=== PATIENT | female | born 1945 | race Caucasian/White ===

== ENCOUNTER 2019-03-02 00:09 | Observation (INO) ==
[2019-03-02] MEDS ORDERED: ZOFRAN IV ONE (00:22)
--- NOTE | 2019-03-02 00:26 | PROVIDER DOCUMENTATION ---
This chart was entered by Tracy Handy Scribe, acting as scribe for Fidel Carroll CRNP. HPI-General Adult - General Source: patient - History of Present Illness -Gen Adult Nature of Presenting Problems: 73 y/o female presents to ED with syncope onset just prior to arrival. Pt reports nausea and diarrhea for the past 5 days. Pt states she has diarrhea within 30 minutes of eating or drinking. Pt reports she was exposed to "a stomach bug." Pt is alert and oriented. Location of Pain/Injury: reports: none Pain Radiation: reports: no radiation Quality of Pain: reports: none Severity: reports: mild Onset/Duration: reports: just prior to arrival, 5 days ago Timing: reports: still present Context/Activities at Onset: reports: none Modifying Factors: improves with: nothing Associated Symptoms: reports: diarrhea, nausea, syncope Similar Symptoms Previously?: No Recently seen or treated by another doctor?: No <Fidel Carroll - Last Filed: 03/02/19 01:35> - History of Present Illness -Gen Adult Nature of Presenting Problems: Patient is a 73 year old white female who presents with diarrheal illness and orthostasis after exposure to family member with diarrhea illness who visited [facility]. <Sanchez Jackson - Last Filed: 03/02/19 03:28> - General Chief Complaint: Syncope Stated Complaint: Syncope Time Seen by Provider: 03/02/19 00:16 Allergies/Adverse Reactions: Patient Allergies Allergy/AdvReac Type Severity Reaction Status Date / Time ropinirole [From Requip] Allergy NAUSEA/VOMI Verified 03/02/19 00:16 TING Home Medications: Home Medication List Medication Instructions Recorded Confirmed Last Taken Type Citalopram [Celexa] 40 mg PO HS 04/04/14 04/04/14 04/03/14 22:00 History Cyclobenzaprine [Flexeril] 10 mg PO TID PRN 04/04/14 04/04/14 04/02/14 14:00 History Diphenhydramine HCl [Allergy 25 mg PO PRN PRN 04/04/14 04/04/14 04/03/14 09:00 H istory Relief] Hydrocodone/APAP 10 mg/325 mg 1 each PO Q4H PRN PRN #20 tablet 04/04/14 Unknown Rx [Ponderay-10] Mometasone/Formoterol [Dulera 200 8.8 gm IH BID 04/04/14 04/04/14 04/04/14 09:00 History Mcg/5 Mcg Inhaler] Ondansetron [Zofran] 4 mg PO Q6H PRN PRN #20 tablet 04/04/14 Unknown Rx Promethazine HCl 25 mg PO Q4-6H PRN PRN 04/04/14 04/04/14 04/03/14 19:00 History Review of Systems - Adult - REVIEW OF SYSTEMS - ADULT Constitutional: denies: chills, fever Eyes: reports: no symptoms reported Ears, Nose, Mouth & Throat: reports: no symptoms reported Cardiovascular: denies: chest pain, palpitations Respiratory: denies: cough, shortness of breath Gastrointestinal: reports: diarrhea, nausea. denies: abdominal pain, vomiting Genitourinary: reports: no symptoms reported Musculoskeletal: denies: back pain, joint pain Integumentary: reports: no symptoms reported Neurological: reports: syncope. denies: dizziness/vertigo, seizure Psychiatric: reports: no symptoms reported Endocrine: reports: no symptoms reported Hematologic/Lymphatic: reports: no symptoms reported Allergic/Immunologic: reports: no symptoms reported All Other Systems: Reviewed and Negative <Fidel Carroll - Last Filed: 03/02/19 01:35> Past History - Adult - PAST MEDICAL HISTORY-ADULT Review of Records: reports: Old Records Reviewed, Nursing Assessment Review, Medications Reviewed Major Childhood Illnesses: reports: denies history Cardiovascular: reports: denies history Respiratory: reports: asthma Gastrointestinal: reports: denies history Obstetrical/Gynecological: reports: denies history Genitourinary: reports: denies history Musculoskeletal: reports: fibromyalgia, other (fibromyalgia) Neurological: reports: denies history Psychiatric: reports: anxiety, depression Endocrine/Immune: reports: Diabetes Other Conditions: reports: denies history - PRIOR SURGERIES/PROCEDURES Surgical/Procedure History: reports: cholecystectomy, hysterectomy, orthopedic (extremity) (L shoulder; R knee; R foot), gastric bypass - IMMUNIZATION STATUS Childhood Immunizations: See Nurse Assessment Flu Vaccine: See Nurse Assessment - FAMILY HISTORY Family History: reviewed, not pertinent - SOCIAL HISTORY Smoking: non-smoker Substance Use: none/never Alcohol Use Frequency: never Living Situation: family <Fidel Carroll - Last Filed: 03/02/19 01:35> Physical Exam-General - PHYSICAL EXAM-ADULT Initial Vital Signs Reviewed: Yes - CONSTITUTIONAL General Appearance: appears well, alert, no apparent distress - EYES Eyes: PERRL/EOMI, pink conjunctivae - HEAD, EARS, NOSE, MOUTH & THROAT HENMT: normocephalic/atraumatic, moist mucous membranes, normal ENT inspection - NECK Neck: non-tender, full range of motion - RESPIRATORY Respiratory: chest non-tender, lungs clear, normal breath sounds - CARDIOVASCULAR Cardiovascular: normal peripheral pulses, regular rate, rhythm - GASTROINTESTINAL (ABDOMEN) Abdominal Exam: non tender, soft, abnormal bowel sounds (hypoactive). negative: normal bowel sounds - MUSCULOSKELETAL Back Exam: normal inspection, no CVA tenderness, no vertebral tenderness Extremity: normal range of motion, non-tender - SKIN Integumentary: normal color, warm/dry - NEUROLOGIC Neurologic: grossly normal - PSYCHIATRIC Psych/Mental Status: normal mood/affect, normal thought content, normal thought process, oriented x 3 <Fidel Carroll - Last Filed: 03/02/19 01:35> Progress - PLAN OF CARE/RESULTS Progress/Plan/Lab Results: Vital Signs - 8 hr 03/02/19 00:09 Pulse Rate 90 Respiratory Rate 18 Blood Pressure 107/69 O2 Sat by Pulse Oximetry 94 L Orders Category Date Time Status Cardiac Monitoring DIRECTED Care 03/02/19 01:07 Active Orthostatic Vital Signs NOW Care 03/02/19 00:20 Active Saline Loc NOW Care 03/02/19 00:20 Active CHEST-PORTABLE [RAD] Stat Exams 03/02/19 00:21 Taken CBC WITH ELECTRONIC DIFF [HEME] Stat Lab 03/02/19 00:30 Completed CK PROFILE [SP CHEM] Stat Lab 03/02/19 00:30 Received COMPREHENSIVE METABOLIC PANEL [CHEM] Stat Lab 03/02/19 00:30 Received TROPONIN T Stat Lab 03/02/19 00:[address] W/POSS RFLX CULT [URINALYSIS] Stat Lab 03/02/19 00:21 Uncollected 0.9% Sodium Chloride Inj [Ns] 1,000 ml Med 03/02/19 00:22 Discontinued IV 999 mls/hr Ondansetron [Zofran] Med 03/02/19 00:22 Discontinued 4 mg IV NOW ONE EKG [EKG] Stat Ther 03/02/19 00:20 Ordered Laboratory Tests 03/02/19 00:30 WBC 16.15 H RBC 5.34 Hgb 15.4 Hct 45.7 MCV 85.6 MCH 28.8 MCHC 33.7 RDW Std Deviation 14.9 H Plt Count 473 H MPV 10.7 H Immature Gran % (Auto) 0.4 Neut % (Auto) 87.2 H Lymph % (Auto) 7.4 L Starr % (Auto) 4.8 Eos % (Auto) 0.1 Baso % (Auto) 0.1 Immature Gran # (Auto) 0.07 H Neut # (Auto) 14.08 H Lymph # (Auto) 1.19 L Starr # (Auto) 0.77 H Eos # (Auto) 0.02 Baso # (Auto) 0.02 Result Diagrams: 03/02/19 00:30 - XRAY 1 XRAY Study: Chest Impression: See EMR Report - CHANGE OF SHIFT REPORT (ED Provider) 1 Report Given and Care Transferred to:: Dr. Jackson Time of Transfer: 01:00 Items Pending: Labs, XRAY Results <Fidel Carroll - Last Filed: 03/02/19 01:35> - PLAN OF CARE/RESULTS Progress/Plan/Lab Results: Vital Signs - 8 hr 03/02/19 00:09 Pulse Rate 90 Respiratory Rate 18 Blood Pressure 107/69 O2 Sat by Pulse Oximetry 94 L Laboratory Results - last 24 hr 03/02/19 03/02/19 03/02/19 00:30 00:30 01:56 WBC 16.15 H RBC 5.34 Hgb 15.4 Hct 45.7 MCV 85.6 MCH 28.8 MCHC 33.7 RDW Std Deviation 14.9 H Plt Count 473 H MPV 10.7 H Immature Gran % (Auto) 0.4 Neut % (Auto) 87.2 H Lymph % (Auto) 7.4 L Starr % (Auto) 4.8 Eos % (Auto) 0.1 Baso % (Auto) 0.1 Immature Gran # (Auto) 0.07 H Neut # (Auto) 14.08 H Lymph # (Auto) 1.19 L Starr # (Auto) 0.77 H Eos # (Auto) 0.02 Baso # (Auto) 0.02 Sodium 138 Potassium 4.4 Chloride 100 Carbon Dioxide 21 L Anion Gap 17 BUN 29 H Creatinine 1.9 H Estimated GFR/1.73 m2 26 BUN/Creatinine Ratio 15 Glucose 192 H POC Glucose 177 H Calculated Osmolality 287 Calcium 9.3 Total Bilirubin 0.40 AST 20 ALT 13 Alkaline Phosphatase 150 H Creatine Kinase 97 Total Protein 7.3 Albumin 4.5 Globulin 3.0 Albumin/Globulin Ratio 2.0 Orders Category Date Time Status Cardiac Monitoring DIRECTED Care 03/02/19 01:07 Active Orthostatic Vital Signs NOW Care 03/02/19 00:20 Active Saline Loc NOW Care 03/02/19 00:20 Active CHEST-PORTABLE [RAD] Stat Exams 03/02/19 00:[address] ABD/PELVIS W/ORAL CONT ONLY [CT] Stat Exams 03/02/19 02:49 Ordered C DIFF TOXIN PL Stat Lab 03/02/19 01:40 Uncollected CBC WITH ELECTRONIC DIFF [HEME] Stat Lab 03/02/19 00:30 Completed CK PROFILE [SP CHEM] Stat Lab 03/02/19 00:30 Completed COMPREHENSIVE METABOLIC PANEL [CHEM] Stat Lab 03/02/19 00:30 Completed TROPONIN T Stat Lab 03/02/19 00:[address] W/POSS RFLX CULT [URINALYSIS] Stat Lab 03/02/19 00:21 Uncollected 0.9% Sodium Chloride Inj [Ns] 1,000 ml Med 03/02/19 00:22 Discontinued IV 999 mls/hr Ondansetron [Zofran] Med 03/02/19 00:22 Discontinued 4 mg IV NOW ONE EKG [EKG] Stat Ther 03/02/19 00:20 Ordered Result Diagrams: 03/02/19 00:30 03/02/19 00:30 - CONSULTS/PCP/HOSPITALIST Notification #1 *Consult/PCP/Hospitalist*: DR. Ignacio Time Discussed: 03:25 Reason/Comments: Start IV Levaquin and Flagyl, NS at 125cc/hr Consult Disposition: Admit <Sanchez Jackson - Last Filed: 03/02/19 03:28> Departure <Fidel Carroll - Last Filed: 03/02/19 01:35> - Departure Date of Disposition Decision: 03/02/19 Time of Disposition Decision: 02:53 Certified Medical Emergency: Emergent - Critical Care Note This patient required my direct & personal management of CC.: No <Sanchez Jackson - Last Filed: 03/02/19 03:28> - Departure DIAGNOSIS: Acute kidney injury, Orthostatic hypotension, Diarrheal disease Disposition: ADMITTED INPATIENT 09 Condition: Stable Referrals and Follow-Ups: Puma Shipley MD [Primary Care Provider] - Attestation - Physician/ NITISH Attestation Patient care was provided by Advanced Practice Provider:: Yes Advanced Practice Provider:: Fidel Carroll Advanced Practice Provider documentation review:: The Mid-level provider documentation, treatment plan and medical decision making was reviewed by the physician who agrees with all treatment and medical decision making by the MLP. The physician spent face to face time with patient:: No Advanced Practice Provider documentation review:: Supervising physician onsite and consulted in the evaluation and care of this patient. The physician did not have a face to face encounter with the patient. <Fidel Carroll - Last Filed: 03/02/19 01:35> This chart was documented by the indicated scribe, (Tracy Handy, Kathleen) and accurately reflects the services I performed and decisions made by , Fidel Carroll CRNP, as attested by the provider's signature.
[2019-03-02] MEDS: NS 1,000 ML IV ONE ×2 (01:13→01:14)
[2019-03-02 01:20] LABS: BASO# 0.02 X1000 (0.0-0.2); BASO% 0.1 % (0.0-0.8); EOS# 0.02 X1000 (0.0-0.7); EOS% 0.1 % (0.0-10.0); HEMATOCRIT 45.7 % (37.0-47.0); HEMOGLOBIN 15.4 g/dL (12.0-16.0); IMM GRAN% 0.4 % (0.0-0.5); LYMPH# 1.19 X1000 (1.2-3.4); LYMPH% 7.4 % (20.5-51.1); MCH 28.8 PG (27-31); MCHC 33.7 g/dL (33-37); MCV 85.6 FL (81-99); MONO# 0.77 X1000 (0.11-0.59); MONO% 4.8 % (1.7-9.3); MPV 10.7 FL (7.4-10.4); NEUT# 14.08 X1000 (1.4-6.5); NEUT% 87.2 % (42.2-75.2); PLT 473 X1000 (130-400); RBC 5.34 XMIL (4.2-5.4); RDW 14.9 % (11.5-14.5); WBC 16.15 X1000 (4.8-10.8)
[2019-03-02 01:21] LABS: IMM GRAN# 0.07 X1000 (0.0-0.04)
[2019-03-02 02:21] LABS: ALBUMIN 4.5 g/dL (3.5-5.0); CALCIUM 9.3 mg/dL (8.8-10.2); CREATININE 1.9 mg/dL (0.5-0.9); POTASSIUM 4.4 mmol/L (3.5-5.1); TOTAL BILIRUBIN 0.4 mg/dL (0.20-1.00); TOTAL PROTEIN 7.3 g/dL (6.3-8.3)
[2019-03-02] MEDS ORDERED: ZOFRAN IV PRN (02:54)
[2019-03-02] MEDS ORDERED: NS 1,000 ML IV ONE (02:54)
[2019-03-02] MEDS: FLAGYL 500 MG/NS 500 MG/100 ML IVPB IV SCH ×4 (03:30→20:58)
[2019-03-02] MEDS ORDERED: FLAGYL 500 MG/NS 500 MG/100 ML IVPB ONE (03:37)
[2019-03-02] MEDS ORDERED: LEVAQUIN 750 MG/D5W 750 MG/150 ML IVPB IV ONE (05:10)
--- NOTE | 2019-03-02 05:48 | Diag Imaging Result Doc PS360 ---
EXAM: CHEST-PORTABLE HISTORY: syncope TECHNIQUE: Chest single view COMPARISON: None. FINDINGS: Poor inspiratory effort. The heart is not enlarged. The vessels are not distended. There are no infiltrates. No effusion identified. There may be a hiatal hernia. IMPRESSION: Negative exam. Follow-up PA and lateral recommended. 'V Electronically signed by Tolu Don 03/02/2019 5:45 AM
--- NOTE | 2019-03-02 05:57 | EKG Report ---
Test Performed on : 03/02/2019 05:34:30 AM Test Reason : syncope Blood Pressure : / mmHG Vent. Rate : 079 BPM Atrial Rate : 079 BPM P-R Int : 154 ms QRS Dur : 080 ms QT Int : 390 ms P-R-T Axes : 035 -03 030 degrees QTc Int : 447 ms Normal sinus rhythm. Inferior infarct , age undetermined Abnormal ECG No previous ECGs available Confirmed by Merrill Crews MD ([id number]) on 03/02/2019 9:35:52 PM
[2019-03-02 06:28] LABS: BILIRUBIN URINE 2+ (NEGATIVE); BLOOD URINE TRACE (NEGATIVE); CLARITY VERY CLOUDY (CLEAR); COLOR YELLOW; GLUCOSE URINE NEGATIVE (NEGATIVE); KETONE URINE TRACE mg/dL (NEGATIVE); LEUKOCYTES URINE 2+ (NEGATIVE); NITRITE URINE NEGATIVE (NEGATIVE); PROTEIN URINE 1+(30 mg/dL) mg/dL (NEGATIVE); UROBILINOGEN URINE 1 mg/dL
[2019-03-02 06:29] LABS: URINE BACTERIA 4+ /HFP; URINE CAST NONE SEEN /LPF; URINE CRYSTAL NONE SEEN /HPF; URINE EPITHELIAL CELLS >10 /HPF (<10); URINE RBC <10 /HPF (<10); URINE SOURCE CLEAN CATCH; URINE WBC TNTC /HPF (<10); URINE YEAST NONE SEEN /HPF
[2019-03-02] MEDS ORDERED: MIRAPEX PO PRN (08:09)
--- NOTE | 2019-03-02 08:33 | Diag Imaging Result Doc PS360 ---
EXAM: CT ABD/PELVIS W/ORAL CONT ONLY HISTORY: diarrhea TECHNIQUE: CT abdomen and pelvis without intravenous contrast, but oral contrast was administered. COMPARISON: None. FINDINGS: No focal hepatic abnormality identified on this noncontrasted exam. The gallbladder has been removed. The spleen is not enlarged. There is fatty infiltration of the pancreas. Normal adrenal glands. No renal stones or hydronephrosis. Prominent atherosclerosis. No aortic aneurysm. There is thickening to the wall of the duodenum with adjacent inflammation. No bowel obstruction. There has been a gastric bypass procedure. No abscess. There is a small umbilical hernia. Moderate free fluid is in the pelvis. The uterus has been removed. No pelvic mass. Urinary bladder is moderately distended and is normal. Prominent spinal stenosis in the lower lumbar spine. IMPRESSION: 1.Suspect duodenitis or ulcer disease 2.Cholecystectomy 3.Umbilical hernia 4.Spinal stenosis in the lower lumbar spine 5.Gastric bypass 6.Hysterectomy 7.Free fluid in the pelvis This exam was performed using automated exposure control, adjustment of mA or kV according to patient size, and/or use of iterative reconstruction technique. Electronically signed by Tolu Don 03/02/2019 8:30 AM
[2019-03-02] MEDS: PRILOSEC PO SCH (09:16)
[2019-03-02] MEDS ORDERED: TYLENOL PO PRN (09:45)
[2019-03-02 11:53] LABS: HEMOGLOBIN A1C 5.4 % (4.8-6.0)
--- NOTE | 2019-03-02 12:46 | HISTORY AND PHYSICAL ---
PRIMARY CARE PROVIDER: Dr. Puma Shipley. CHIEF COMPLAINT: Diarrhea and passed out. HISTORY OF PRESENT ILLNESS: Ms. Sammie Hernandez is a 73-year-old female with a medical history of morbid obesity with a history of gastric bypass, arthritis, fibromyalgia, irritable bowel syndrome with diarrhea and diverticulum. She states that over the last 2 to 3 weeks she has had spells of diarrhea but worsened over the last 5 days to the point that any time she would eat or drink 30 minutes later she was having diarrhea. Color consistency is loose and green to cream- colored. Denied any fever with it. She did have abdominal pain that was across the abdomen from left to right. She only had vomiting one time but has essentially avoided food to avoid the nausea that she has been having. She presented here because yesterday she was getting up to go to the bathroom and passed out. She has been having dizzy spells, which sounds as if she is dehydrated, and having some orthostatic hypotension. We will admit her. We will test the stool to make sure there is not bacteria. Apparently, she has been around other family members that had diarrhea who had also been on multiple antibiotics so she is at risk for having C diff. We will rule that out as well. PAST MEDICAL HISTORY: 1. Arthritis. 2. Anxiety and depression. 3. Fibromyalgia. 4. Diabetes. She says it is pre diabetes, but she is hyperglycemic here. 5. Diverticulum. 6. Irritable bowel syndrome with diarrhea. PAST SURGICAL HISTORY: 1. Cholecystectomy. 2. Hysterectomy. 3. Left shoulder surgery. 4. Right knee surgery. 5. Right foot surgery. 6. Right elbow surgery with metal. 7. Gastric bypass. SOCIAL HISTORY: Denies tobacco, alcohol or illicit drug use. She lives at home with her who is currently at the bedside. FAMILY HISTORY: Mother had diabetes and kidney cancer. Father had prostate cancer and diabetes. He also had coronary artery disease with a CABG in his 70s. ALLERGIES: Requip. HOME MEDICATIONS: 1. Mirapex 0.25 mg p.o. at bedtime. 2. Piroxicam 20 mg p.o. nightly. 3. Temazepam 30 mg p.o. nightly. 4. Celexa 40 mg p.o. nightly. REVIEW OF SYSTEMS: Fourteen point review of systems are complete and all are negative except for those mentioned above in HPI. She does have complaints of a headache and neck pain since her fall yesterday. She will get a CT to evaluate that. PHYSICAL EXAMINATION: VITAL SIGNS: Temperature 97.5 degrees, heart rate 76, respiratory rate 16, blood pressure 119/59, O2 saturation 95% on room air. GENERAL: Ms. Sammie Hernandez is a 73-year-old, female. She is in no acute distress. She is able answer questions appropriately. HEENT: Atraumatic, normocephalic. Pupils equal, round, and reactive to light. Extraocular movements intact. Mucous membranes are dry. NECK: Trachea midline. CARDIOVASCULAR: S1, S2. Regular rate and rhythm. No rubs, gallops, or murmurs. No lower extremity edema. +2 dorsalis and radial pulses. Negative JVD or carotid bruits. PULMONARY: Clear to auscultation. Bilateral breath sounds. No accessory muscle use or work of breathing noted. GI: Soft and tender in the left upper quadrant. Nondistended. Hypoactive bowel sounds x4. EXTREMITIES: Moves all extremities equally with full range of motion. NEUROLOGIC: Alert and oriented x3. Follows commands. Sensory is intact. SKIN: Warm, dry, and intact. LABORATORY DATA: White blood cells 16,000, hemoglobin 15, hematocrit 45, and platelet count 473,000. Sodium 138, potassium 4.4, BUN 29, creatinine 1.9, glucose 192, calcium 9.3, bilirubin 0.40, AST 20, ALT 13, CK 97, troponin less than 0.01. Albumin 4.5. Urinalysis cloudy. 1+ protein, 2+ bilirubin, 2+ white blood cells, too numerous to count microscopic white blood cells, and bacteria 4+. IMAGING: Chest x-ray shows hiatal hernia. Otherwise negative. Abdominal and pelvic CT suspect duodenitis or ulcer disease. Cholecystectomy and umbilical hernia, spinal stenosis in the lower lumbar spine, gastric bypass, hysterectomy, and free fluid in the pelvis. EKG normal sinus rhythm, rate 79, and QTc is 447. ASSESSMENT/PLAN: 1. Syncope secondary to dehydration and orthostatic hypotension due to diarrhea. She only had one spell but she has been having several spells of get dizzy while standing in the last several days. We will do orthostatic vital signs to check to make sure she is starting to hydrate enough that she can tolerate getting out of bed. She is receiving IV fluid hydration. 2. Acute kidney injury secondary to dehydration. Again, getting IV fluid hydration. We will recheck her kidney function in the morning. 3. Duodenitis. She is getting Levaquin and Flagyl IV. She states the pain in her abdomen is already starting to slow down along and the diarrhea has already started to slow down. 4. Depression and anxiety. Fibromyalgia. Continue Celexa and temazepam. 5. Arthritis. She is on Piroxicam. We will hold that given the acute kidney injury. 6. Irritable bowel syndrome with diarrhea. Only has spells of diarrhea but currently what she is experiencing is abnormal for her usual bowel habits. 7. Diabetes mellitus type 2. She states that it is pre diabetes. Her blood glucose level was 192 when she presented. We will do pattern blood glucoses, and will do a sliding scale insulin and order hemoglobin A1c. 8. Morbid obesity. BMI 34.2. She has had a gastric bypass in the past. Currently, she is not eating well due to the nausea, but she continues to have a good albumin level of 4.5. 9. Possible urinary tract infection per urinalysis. She has no urinary complaints at this time but Levaquin has been given to treat the duodenitis, but also treat the urinary tract infection. We will follow up if there is a culture result. It is pending right now. 10. Deep venous thrombosis prophylaxis. SCD's. 11. Complains of headache and neck pain since her syncopal spell. We will get a CAT scan of the head and neck. Apparently, recently, she has been having severe headaches. ADDENDUM: Cervical CT shows C1 vertebral fracture. Call placed to discuss with neurosurgery at [facility]. C-Collar placed. Dictated by WENDY Kraus for Fransisco Stone MD Addendum: Patient seen and examined by myself. Agree with WENDY note. It reflects my assessment and plan. Patient is being admitted to hospital for syncope secondary to dehydration. She also has developed TUAN. Will provide IV fluids resuscitation and will place her in a C collar and do MRI of neck with contrast as per Neurosurgeon recommendation, Dr. Lim. Will monitor patient closely. cc: WENDY Kraus MD [facility]
--- NOTE | 2019-03-02 13:01 | Diag Imaging Result Doc PS360 ---
EXAM : CT HEAD/C-SPINE W/O CONTRAST HISTORY: head/neck ache after fall TECHNIQUE: 1. CT head without contrast 2. CT cervical spine without contrast COMPARISON: None. FINDINGS: Head: No parenchymal hemorrhage. No epidural or subdural hematoma. No subarachnoid hemorrhage. There is atrophy of chronic ischemic changes. No mass identified on this noncontrasted exam. No hydrocephalus. No skull fracture. Cervical spine: There is a prominent superior bone spur anteriorly to the C1 vertebra. There is a vertical fracture through this bone spur and through the remaining portion of the anterior C1 vertebra. No other fracture to the C1 vertebra is present. No other fracture to the cervical spine. There is good alignment. Mild degenerative changes are present. There are small degenerative bone spurs throughout the cervical spine. IMPRESSION: Head: No hemorrhage. No injury. Cervical spine: Nondisplaced C1 fracture. This report was discussed with Mr. Gerald Alfredo the radiology golf club head inspector on 03/02/2019 at 12:55 PM and was readback. He will contact the floor with the results. This exam was performed using automated exposure control, adjustment of mA or kV according to patient size, and/or use of iterative reconstruction technique. Electronically signed by Tolu Don 03/02/2019 12:58 PM
[2019-03-02] MEDS ORDERED: NORCO-5 PO PRN (15:03)
[2019-03-02] MEDS: NS 1,000 ML IV SCH (15:10)
[2019-03-02] MEDS: HUMULIN R (PARKWAY) SUBQ SCH ×2 (17:29→21:04)
[2019-03-02] MEDS: CELEXA PO SCH (20:55)
[2019-03-02] MEDS: RESTORIL PO SCH (20:58)
[2019-03-03] MEDS: NS 1,000 ML IV SCH ×3 (01:37→13:39)
[2019-03-03] MEDS: FLAGYL 500 MG/NS 500 MG/100 ML IVPB IV SCH ×4 (04:30→21:34)
[2019-03-03] MEDS: PRILOSEC PO SCH (06:08)
[2019-03-03 08:02] LABS: AGAP 10; ALBUMIN 3.3 g/dL (3.5-5.0); ALKALINE PHOSPHATASE 119 U/L (32-104); BUN 17 mg/dL (8-22); CALCIUM 8.1 mg/dL (8.8-10.2); CHLORIDE 110 mmol/L (98-107); COSMO 281; CREATININE 0.8 mg/dL (0.5-0.9); ESTIMATED GFR > 60; GLUCOSE 106 mg/dL (70-104); GOT 15 U/L (10-30); GPT 10 U/L (10-36); POTASSIUM 4.1 mmol/L (3.5-5.1); SODIUM 140 mmol/L (136-145); TCO2 20 mmol/L (25-35); TOTAL PROTEIN 6.1 g/dL (6.3-8.3)
[2019-03-03 08:18] LABS: BASO# 0.03 X1000 (0.0-0.2); BASO% 0.5 % (0.0-0.8); EOS# 0.39 X1000 (0.0-0.7); HEMATOCRIT 35.4 % (37.0-47.0); HEMOGLOBIN 11.4 g/dL (12.0-16.0); IMM GRAN# 0.02 X1000 (0.0-0.04); IMM GRAN% 0.3 % (0.0-0.5); LYMPH% 24.7 % (20.5-51.1); MCH 28.1 PG (27-31); MCHC 32.2 g/dL (33-37); MCV 87.2 FL (81-99); MONO# 0.64 X1000 (0.11-0.59); MONO% 9.9 % (1.7-9.3); MPV 10.6 FL (7.4-10.4); NEUT% 58.6 % (42.2-75.2); PLT 290 X1000 (130-400); RBC 4.06 XMIL (4.2-5.4); RDW 14.9 % (11.5-14.5); WBC 6.48 X1000 (4.8-10.8)
[2019-03-03 08:31] LABS: INR 1.1; PROTIME 14.8 Seconds (11.0-16.0)
[2019-03-03 08:32] LABS: PTT 28.3 Seconds (22.3-41.8)
[2019-03-03] MEDS: HUMULIN R (PARKWAY) SUBQ SCH ×4 (09:27→20:24)
[2019-03-03] MEDS ORDERED: HALDOL IV ONE (10:32)
[2019-03-03] MEDS: LEVAQUIN 750 MG/D5W 750 MG/150 ML IVPB IV SCH (11:25)
--- NOTE | 2019-03-03 11:53 | PROGRESS NOTE ---
DATE: 03/03/2019 SUBJECTIVE: Patient reports feeling better. Reports just a few episodes of diarrhea. No more episodes of loss of consciousness. OBJECTIVE: Vital Signs: Temperature 98.2 degrees, heart rate 79, respiratory rate 20, blood pressure 154/70, O2 saturation 96% on room air. General Examination: This is a chronically ill- appearing and obese, 73-year-old, female lying in bed, in no acute distress. Cardiovascular Examination: S1 and S2 heard. No murmurs, gallops, or rubs. Regular rate and rhythm. Respiratory Examination: Clear bilaterally to auscultation. No work of breathing or using accessory muscles. Abdomen: Soft. Mildly tender to palpation in the left upper quadrant but there is no distention. Bowel sounds present but hypoactive. No organomegaly noted. Extremities: No clubbing, cyanosis, or edema. Peripheral pulses present in both legs. Neurological Examination: The patient is alert and oriented x3. Moves 4 extremities. Laboratory Data: White cell count 6.48, hemoglobin 11.4, hematocrit 35.4, platelets 290,000. BMP that is remarkable for normal creatinine at 0.8, calcium is 8.1. The urine culture showed gram- negative rods. ASSESSMENT AND PLAN: 1. Syncope secondary to dehydration and orthostatic hypotension secondary to diarrhea. At this point, diarrhea is almost resolved. Patient is on Levaquin and Flagyl. White cell count is back to normal. We will continue with intravenous fluids and the same antibiotics. 2. Acute kidney injury secondary to dehydration, resolved. 3. Depression and anxiety. We will continue with Celexa and temazepam. 4. Nondisplaced C1 fracture. We have talked with Dr. Lim, neurosurgeon at [facility], about her case of patient with a fall and nondisplaced C1 fracture. He recommends to have a C- collar and also, she needs to be seen as an outpatient after she is discharged from the hospital. He also recommended to have an MRI of the neck with contrast to check the anatomy of the spine. The patient initially was reluctant to do it because of this MRI is closed but she said that she is going to try today. 5. Diabetes mellitus type 2. We will continue with sliding scale insulin, and Accu-Chek before meals and also at bedtime. Her hemoglobin A1c was 5.4. 6. Morbid obesity. Aware. Patient has a history of bypass and complaining of nausea. She is recommended to see gastroenterology as an outpatient. 7. Urinary tract infection. We will continue with Levaquin and will see what the final urine culture shows. 8. Disposition. We will continue to monitor this patient closely. I think if her numbers, her labs continue to be within normal limits, I think this patient can be discharged tomorrow with followup with neurosurgery in a week or two. cc: Fransisco Stone MD
[2019-03-03] MEDS: CELEXA PO SCH (20:24)
[2019-03-03] MEDS: RESTORIL PO SCH (20:24)
[2019-03-04] MEDS: NS 1,000 ML IV SCH (00:23)
[2019-03-04] MEDS: FLAGYL 500 MG/NS 500 MG/100 ML IVPB IV SCH ×2 (03:05→10:23)
[2019-03-04] MEDS: PRILOSEC PO SCH (06:08)
[2019-03-04] MEDS: HUMULIN R (PARKWAY) SUBQ SCH (06:14)
[2019-03-04] MEDS ORDERED: HALDOL IV ONE (08:30)
[2019-03-04 08:39] VITALS: BP 176/72
[2019-03-04] MEDS: LEVAQUIN 750 MG/D5W 750 MG/150 ML IVPB IV SCH (10:24)
--- NOTE | 2019-03-05 13:46 | DISCHARGE SUMMARY ---
ADMISSION DATE: 03/02/2019 DISCHARGE DATE: 03/04/2019 ADMISSION DIAGNOSIS: 1. Syncope secondary to dehydration and orthostatic hypotension due to diarrhea. 2. Acute kidney injury secondary to dehydration. 3. Duodenitis, getting Levaquin and Flagyl. 4. Depression, anxiety, and fibromyalgia. 5. Arthritis. 6. Irritable bowel syndrome with diarrhea. 7. Diabetes mellitus type 2. 8. Morbid obesity. 9. Possible urinary tract infection per urinalysis. 10. Complaints of head and neck pain since syncopal spell. 11. Addendum revealed documentation a C1 vertebral fracture which was discussed with neurosurgery, Dr. Lim in [facility] and a C-collar was placed which she is to wear for 3 months and follow up with Dr. Lim as an outpatient and get an open MRI on discharge. DISCHARGE DIAGNOSIS: 1. Syncope secondary to dehydration and orthostatic hypotension secondary to diarrhea. 2. Acute kidney injury secondary to dehydration, resolved. 3. Depression anxiety. 4. Nondisplaced C1 fracture. C collar. Will follow up as outpatient with Dr. Lim, who is [facility]'s neurosurgeon. Open MRI of the neck as an outpatient. 5. Diabetes mellitus type 2. 6. Morbid obesity. 7. Urinary tract infection. CONSULTATIONS: Dr. Rosendo Lim from [facility] was a verbal consultation to get recommendations and have patient follow up as an outpatient for C1 fracture. SURGERIES AND PROCEDURES: None. HOSPITAL COURSE: Ms. Sammie Hernandez is a 73-year-old female with a medical history of irritable bowel syndrome with diarrhea, diverticulum, diabetes, fibromyalgia, anxiety, depression, arthritis, and a history of morbid obesity with gastric bypass in the past. She came in due to the last 2 to 3 weeks, she has been having spells of diarrhea that worsened over the last 5 days prior to admit, was having issues with eating and drinking because she would have to immediately go to the bathroom. Stools were green in color. They were loose. There was no fever. She did have abdominal pain with it but came here because when she had gotten up to go to the bathroom, she passed out and had incontinent stool. Apparently she had also been having some dizzy spells due to her dehydration and orthostatic hypotension that had developed so she was admitted for hydration. CAT scan showed duodenitis so IV Flagyl and Levaquin was started. Of note, she did have complaints of pain in her neck and headaches since the fall. She was sent for CT of the head and neck which revealed a nondisplaced C1 fracture. Dr. Rosendo Lim from [facility], who is a neurosurgeon, was called for recommendations and recommendations including placing a C-collar for 3 months and having an MRI and to follow up with him as an outpatient. Neurologically there were no symptoms of cord compression. DISCHARGE VITAL SIGNS: Temperature 98.1 degrees, heart rate 73, respiratory rate 18, blood pressure 176/72, O2 saturation 93% on room air. LAB DATA: On 03/03/2019, white blood cells 6000, hemoglobin 11, hematocrit 35, platelet count 290,000. Sodium 140, potassium 4.1, BUN 17, creatinine 0.8, glucose 106. Calcium was 8.1, magnesium 2.0. Hemoglobin A1c is 5.4, bilirubin 0.20, AST 15, ALT 10, albumin 3.3. IMAGIN03/02/2019, chest x-ray negative exam. Abdominal pelvic CT, suspected duodenitis or ulcer disease. Cholecystectomy and umbilical hernia. Spinal stenosis in the lower lumbar spine. Gastric bypass, hysterectomy, free fluid in the pelvis. Head and cervical spine CT. Impression showed no hemorrhage or injury of the head and the cervical spine showed nondisplaced C1 fracture. EKG normal sinus rhythm, rate 79, QTc 447. MEDICATION: 1. Mirapex 0.25 mg p.o. nightly. 2. Piroxicam 20 mg p.o. nightly. 3. Temazepam 30 mg p.o. nightly. 4. Celexa 40 mg p.o. nightly. 5. Caldwell 5, 1 tablet p.o. every 4 hours p.r.n. 6. Cefdinir 300 mg p.o. twice daily for 7 days. DISCHARGE DIET: Heart healthy. DISCHARGE ACTIVITY: No heavy lifting. No driving while taking pain medication. No driving until directed by . Wear C collar for at least 3 months or until she is followed up by Dr. Rosendo Lim. DISCHARGE INSTRUCTIONS: If your condition changes, contact physician and/or return to the emergency department. Changes may include, but not limited to, shortness of breath, increased fatigue, excessive bleeding, unexplained weight loss or gain, unimaginable pain, signs or symptoms of infection. DISCHARGE DISPOSITION: Home. PHYSICIAN FOLLOWUPS: 1. Dr. Puma Shipley. 2. Dr. Rosendo Lim, which is at [facility], neurosurgeon. She is to wear a C-collar for 3 months and also have an open MRI that is scheduled for next Thursday, which is March 07. Dictated by WENDY Kraus for Fransisco Stone MD Addendum: Patient seen and examined by myself. Agree with WENDY note. It reflects my assessment and plan. Patient is being discharged in stable condition. Will be called by Dr. Lim office for appointment regarding non displaced C1 fracture. We tried to do standard MRI but patient was unable to tolerate the procedure so we are getting an appointment for open MRI of neck with contrast as mentioned above. cc: WENDY Kraus MD [facility]
== END 2019-03-04 11:29 | disposition home or self-care (01) ==
LOC: P.ED 00:09 → P.MEDSURG 00:09 → SUATTDRO 04:36
PROVIDERS: ATTEND Internal Medicine
CPT/HCPCS: 70450; 71010; 71045; 72125; 74176; 80053; 81001; 82550; 82948; 83036; 83735; 84484; 85025; 85610; 85730; 87077; 87088; 87186; 93010; A9270; J1630; J1956; J2405; J7030; S0030; XXXXX